=== PATIENT | female | born 1950 | race Hispanic/Latino ===

== ENCOUNTER 2018-11-04 12:47 | Inpatient (IN) | payer MEDICARE, OTHER ==
[~2018-11-04] VITALS: Ht 149.9 cm; Wt 61.7 kg
[~2018-11-04 12:47] MED LIST: AMITRIPTYLINE H25 MG PO; CHOLESTYRAMINE L4 GM PO; CITALOPRAM HBR40 MG PO; GABAPENTIN300 MG PO; HYDROCODON-ACE1 EA11 PO; LACTULOSE10 GM/151 PO; LEVAQUIN500 MG PO; LEVOTHYROXINE25 MCG PO; MELOXICAM7.5 MG PO; NOVOLIN 70100 UNITS/ SQ; OMEPRAZOLE20 MG PO; PATADAY2.5 ML; URSODIOL500 MG PO
[2018-11-04] MEDS ORDERED: SODIUM CHLORIDE 0.9% 1000ML 1,000 ML IV STA (13:22)
[2018-11-04 13:52] LABS: BASOPHILS % 0.7 % (0.0-1.0); EOSINOPHILS # (AUTO) 0.1 (0.0-0.4); EOSINOPHILS % 4.3 % (0.0-6.0); HEMATOCRIT 39.4 % (34.2-44.1); HEMOGLOBIN 13.3 g/dL (12.0-16.0); LYMPHOCYTES # (AUTO) 0.7 (1.0-3.2); LYMPHOCYTES % 23.1 % (18.0-39.1); MEAN CORPUSCULAR HEMOGLOBIN 27.7 pg (28-32); MEAN CORPUSCULAR HGB CONC 33.8 g/dL (31-35); MEAN CORPUSCULAR VOLUME 82.1 fL (81-99); MONOCYTES # (AUTO) 0.4 (0.2-0.8); MONOCYTES % 14.9 % (4.4-11.3); NEUTROPHILS # (AUTO) 1.6 (2.1-6.9); NEUTROPHILS % 56.6 % (38.7-80.0); RED CELL DISTRIBUTION WIDTH 16.7 % (11.7-14.4)
[2018-11-04 13:53] LABS: BILIRUBIN,URINE NEGATIVE (NEGATIVE); CLARITY,URINE SL CLOUDY (CLEAR); COLOR,URINE YELLOW (YELLOW); KETONES,URINE NEGATIVE (NEGATIVE); LEUKOCYTE ESTERASE ,URINE TRACE (NEGATIVE); NITRITE,URINE POSITIVE (NEGATIVE); PROTEIN,URINE DIPSTICK NEGATIVE (NEGATIVE); URINE UROBILINOGEN 1 mg/dL (0.2 - 1)
[2018-11-04 13:55] LABS: PLATELET COUNT 93 x10e3/uL (140-360)
[2018-11-04 14:02] LABS: INR 1.03
[2018-11-04 14:03] LABS: PARTIAL THROMBOPLASTIN TIME 33.2 seconds (23.8-35.5)
[2018-11-04 14:04] LABS: BACTERIA,URINE MANY /HPF; WBC,URINE (MAN) 0-5 /HPF (0-5)
[2018-11-04 14:10] LABS: ALANINE AMINOTRANSFERASE 36 IU/L (0-55); ALBUMIN 2.8 g/dL (3.5-5.0); ALKALINE PHOSPHATASE 203 IU/L (40-150); ANION GAP 8.1 mmol/L (8-16); BLOOD UREA NITROGEN 6 mg/dL (7-26); BUN/CREATININE RATIO 8 (6-25); CALCIUM 8.3 mg/dL (8.4-10.2); CARBON DIOXIDE 21 mmol/L (22-29); CHLORIDE 110 mmol/L (98-107); CREATINE KINASE 76 IU/L (29-168); CREATININE, SERUM 0.72 mg/dL (0.57-1.11); EST GLOMERULAR FILTRATION RATE > 60 ML/MIN (60-); GLUCOSE 142 mg/dL (74-118); POTASSIUM 4.1 mmol/L (3.5-5.1); SODIUM 135 mmol/L (136-145)
[2018-11-04 14:15] LABS: B-TYPE NATRIURETIC PEPTIDE2 24.1 pg/mL (0-100)
--- NOTE | 2018-11-04 14:41 | Diagnostic Imaging Report ---
Chest, 2 views, 11/04/2018. History: Cough and congestion, shortness of breath. Comparison: None available. Findings: The cardiomediastinal silhouette and pulmonary vasculature are within normal limits. The lungs are clear without evidence of consolidation or pleural effusion. Mild degenerative changes are present within the thoracic spine. There are no acute osseous or soft tissue abnormalities. Impression: No acute cardiopulmonary abnormality. Signed by: Kristopher Lundberg on 11/04/2018 2:37 PM
[2018-11-04] MEDS ORDERED: SODIUM CHLORIDE 0.9% 1000ML 1,000 ML IV SCH (16:19)
[2018-11-04] MEDS ORDERED: CEFTRIAXONE SOD 1 GRAM/0.9% SOD CHL 50ML BAG IV SCH (16:30)
[2018-11-04] MEDS ORDERED: ALBUTEROL SULF 0.083% NEB SOLN 3 ML NEB NEB SCH ×2 (16:30→19:00)
[2018-11-04] MEDS: CEFTRIAXONE SOD 1 GM/NS 50 ML 50 ML IV SCH (16:40)
[2018-11-04] MEDS ORDERED: HYDROCODONE/APAP 10MG-325MG TAB PO ONE (17:00)
--- OUTSIDE RECORDS SUMMARY | 2018-11-04 17:38 | XMS REPORT ---
Author Author [facility] Address Unknown Phone Unavailable Care Team Providers Care Hunter Name Role Phone Mikel PAT Unavailable Unavailable Problems This patient has no known problems. Allergies, Adverse Reactions, Alerts This patient has no known allergies or adverse reactions. Medications This patient has no known medications. Results Test Description Test Time Test Comments Text Results Atomic Results Result Comments CHEST 2 VIEWS 2018-11-04 14:37:00 [place] [address] Patient Name: DELORES DOBBS MR #: [id number] : 1950 Age/Sex: 68/F Req #: [id number] Adm Physician: Ordered by: MARCIE PAT MD Report #: [id number] Location: ER Room/Bed: Procedure: [id number] DX/CHEST 2 VIEWS Exam Date: 11/04/18 Exam Time: 1345 REPORT STATUS: Signed Chest, 2 views, 11/04/2018. History: Cough and congestion, shortness of breath. Comparison: None available. Findings: The cardiomediastinal silhouette and pulmonary vasculature are within normal limits. The lungs are clear without evidence of consolidation or pleural effusion. Mild degenerative changes are present within the thoracic spine. There are no acute osseous or soft tissue abnormalities. Impression: No acute cardiopulmonary abnormality. Signed by: Geovany Lundberg on 11/04/2018 2:37 PM Dictated By: GEOVANY LUNDBERG MD [id number] Transcribed By: SOLE on 11/04/18 1437 COPY TO: MARCIE PAT MD
[2018-11-04] MEDS ORDERED: DEXTROSE 50% SYRINGE 50 ML IV PRN (17:45)
[2018-11-04 17:50] VITALS: BP_SYST 141; BP_SYST 160; BP_DIAS 80; BP_DIAS 95
--- NOTE | 2018-11-04 17:50 | NUR ---
PATIENT RECEIVED FROM ER PER STRETCHER. ALERT AND VERBALLY RESPONSIVE, DENIED PAIN AT THIS TIME. YELLOW SOCKS APPLIED. ASSISTED TO THE RESTROOM AND BACK TO BED, VOIDED CLEAR YELLOW URINE. SOME INTERMITTENT COUGH NOTED, PATIENT ENCOURAGED TO DRINK SOME WATER. RESPIRATION EVEN AND UNLABORED, ABDOMEN SOFT AND LARGE. PATIENT ORIENTED TO SURROUNDINGS, BED IN LOWER POSITION, CALL LIGHT AT REACH. INSTRUCTED TO CALL FOR ASSISTANCE NEEDED. FAMILY AT BED SIDE.
[2018-11-04] MEDS ORDERED: IPRATROPIUM BROMIDE 0.02% 2.5 ML NEB NEB SCH ×2 (18:00→19:00)
[2018-11-04] MEDS ORDERED: METHYLPREDNISOLONE SOD SUCC 40 MG/ML VIAL 1ML IV SCH (18:00)
[2018-11-04] MEDS ORDERED: ALBUTEROL/IPRATROPIUM 3 ML NEB NEB PRN (18:30)
[2018-11-04] MEDS ORDERED: AZITHROMYCIN 500MG/NS 250 ML 250 ML IV SCH (18:30)
[2018-11-04] MEDS ORDERED: LACTULOSE PO PRN (18:30)
[2018-11-04] MEDS ORDERED: LACTULOSE SYRUP 20 GM/30 ML UDC PO PRN (19:00)
[2018-11-04] MEDS ORDERED: IBUPROFEN 200 MG TAB PO PRN (19:00)
--- NOTE | 2018-11-04 20:03 | NUR ---
RECEIVED PT IN BED AOX3 ,[place]LAND[place] SPEAKING .RESPIRATIONS ARE E EVEN AND UNLABORED .SKIN INTACT .CALL LIGHT WITH IN REACH CONTINUE TO MONITOR
[2018-11-04] MEDS: ALBUTEROL/IPRATROPIUM 3 ML NEB NEB SCH ×2 (20:11→23:20)
[2018-11-04 20:15] VITALS: BP 124/58
--- NOTE | 2018-11-04 20:55 | Diagnostic Imaging Report ---
TECHNIQUE: CT scan of the chest WITHOUT intravenous contrast, using standard protocol. The chest was scanned utilizing a multidetector helical scanner from the apex to the level of the adrenal glands. No IV contrast was administered because of need. Coronal and sagittal reformations were obtained. COMPARISON: None INDICATION: 68-year-old female, UTI, fever, cough DISCUSSION: Lines/tubes: None. Lungs and Airways: Mild airways disease. No focal consolidation. Mild bibasilar atelectasis. No concerning nodule or mass. Pleura: The pleural spaces are clear. Heart and mediastinum: The thyroid gland is normal. No significant mediastinal, hilar or axillary lymphadenopathy is seen. The heart and pericardium are within normal limits. Soft tissues: Normal. Abdomen: Hepatic cirrhosis with splenomegaly and sequela of portal hypertension including recanalized umbilical vein and upper abdominal collateral vessels. Trace perisplenic and perihepatic ascites. Heterogeneous mass lesion within the right hepatic lobe posteriorly measuring up to 3.3 cm. Numerous bilateral nonobstructing renal calculi. Bones: No acute bony abnormality. IMPRESSION: Mild airways disease. No focal consolidation. Hepatic cirrhosis with sequela of portal hypertension, as described. Heterogeneous 3.3 cm mass lesion the posterior right hepatic lobe suspicious for malignancy. Dedicated multi phase cross-sectional imaging recommended for further characterization if not already completed at outside facilities. Signed by: Carlo Hood MD on 11/04/2018 8:52 PM
[2018-11-04] MEDS: GABAPENTIN 100 MG CAP PO SCH (21:00)
[2018-11-04] MEDS ORDERED: GABAPENTIN 300 MG CAP PO SCH (21:00)
[2018-11-04] MEDS: HUMULIN 70/30 VIAL SQ SCH (21:00)
[2018-11-04] MEDS: INSULIN LISPRO 100 UNIT/1 ML 3ML VIAL SQ SCH (21:00)
[2018-11-04 21:12] VITALS: BP 124/58
[2018-11-05] VITALS (7 sets, daily range): BP systolic 87–123; BP diastolic 46–59
--- NOTE | 2018-11-05 01:13 | History and Physical ---
PRIMARY CARE PHYSICIAN: Dr. Jake Eller. CHIEF COMPLAINT: Fever, cough, pneumonia. HISTORY OF PRESENT ILLNESS: This is a 68-year-old female with baseline diabetes type 2, end-stage liver disease, cirrhosis, hypothyroidism, esophageal varices with previous management, hypertension, came in with fever for the past 2 weeks, associated with increasing shortness of breath and wheezing, especially with exertion. The patient had a fever of 102 at home. She was also having increasing cough. The patient did not feel well, brought into the emergency room for an evaluation. Currently, the patient is stable. PAST MEDICAL HISTORY: Liver cirrhosis, hypertension, hypothyroidism, esophageal varices, diabetes type 2. PAST SURGICAL HISTORY: Cholecystectomy, right elbow surgery, umbilical hernia repair. SOCIAL HISTORY: The patient does not smoke or use alcohol. No recreational drugs. ALLERGIES: NO KNOWN ALLERGIES. HOME MEDICATIONS: List will be reviewed. REVIEW OF SYSTEMS: Fever, cough, not feeling well, hypoxia. PHYSICAL EXAMINATION: VITAL SIGNS: Temperature T-max is 99, blood pressure 124/58, pulse rate 86, respirations 22. GENERAL: The patient is not in acute distress. She is awake. HEENT: Normocephalic, atraumatic. Anicteric. NECK: Supple grossly. PULMONARY: Diminished breath sounds bilaterally with coarse. CARDIOVASCULAR: S1 and S2. Regular rate and rhythm. ABDOMEN: Soft, some generalized tenderness, minimal fluid. EXTREMITIES: No cyanosis or edema. NEUROLOGIC: No focal deficit. LABORATORY DATA: WBC is 2.8, hemoglobin 13.3, hematocrit 39.4, and platelets 93. Chemistry; sodium is 135, potassium 4.1, chloride 110, bicarb 21, BUN is 6, creatinine 0.7, glucose 142, total bilirubin is 1.3, AST 38, ALT 36, alkaline phosphate 203. IMPRESSION: 1. Fever, shortness of breath, cough, consistent with most likely pneumonia. The patient does have fever, T-max of 102, T current 99. 2. Baseline liver cirrhosis. PLAN: Cover the patient with antibiotics. CT of the chest without IV contrast. Continue with home medication. Probably will not need to cover for DVT prophylactic due to liver cirrhosis with low platelets. We will monitor the patient closely. MD TIN Gilmore/MODL /[id number]
[2018-11-05] MEDS: TRAZODONE HCL 50 MG TAB PO SCH (01:30)
[2018-11-05] MEDS: LEVOTHYROXINE SODIUM 25 MCG TABLET PO SCH (05:45)
--- NOTE | 2018-11-05 06:03 | Diagnostic Imaging Report ---
EXAMINATION: CHEST SINGLE (PORTABLE) INDICATION: Pneumonia. COMPARISON: 11/04/2018. FINDINGS: TUBES and LINES: None. LUNGS: Lungs are not well inflated. There is no evidence of pneumonia or pulmonary edema. PLEURA: No pleural effusion or pneumothorax. HEART AND MEDIASTINUM: Cardiac size is mildly enlarged, possibly magnification. BONES AND SOFT TISSUES: No acute osseous lesion. UPPER ABDOMEN: No free air under the diaphragm. IMPRESSION: Bibasilar atelectasis. Signed by: Dr. Bailee Parry M.D. on 11/05/2018 6:00 AM
[2018-11-05 06:27] LABS: HEMATOCRIT 35.8 % (34.2-44.1); LYMPHOCYTES # (AUTO) 0.4 (1.0-3.2); LYMPHOCYTES % 24.4 % (18.0-39.1); MEAN CORPUSCULAR HEMOGLOBIN 27.8 pg (28-32); MEAN CORPUSCULAR HGB CONC 33.5 g/dL (31-35); MEAN CORPUSCULAR VOLUME 82.9 fL (81-99); MONOCYTES # (AUTO) 0.2 (0.2-0.8); MONOCYTES % 9.4 % (4.4-11.3); NEUTROPHILS # (AUTO) 1.1 (2.1-6.9); NEUTROPHILS % 66.2 % (38.7-80.0); PLATELET COUNT 77 x10e3/uL (140-360); RED BLOOD COUNT 4.32 x10e6/uL (3.6-5.1); RED CELL DISTRIBUTION WIDTH 16.9 % (11.7-14.4)
[2018-11-05 06:42] LABS: ANION GAP 8.4 mmol/L (8-16); BLOOD UREA NITROGEN 9 mg/dL (7-26); BUN/CREATININE RATIO 14 (6-25); CARBON DIOXIDE 19 mmol/L (22-29); CHLORIDE 109 mmol/L (98-107); CREATININE, SERUM 0.66 mg/dL (0.57-1.11); EST GLOMERULAR FILTRATION RATE > 60 ML/MIN (60-); GLUCOSE 237 mg/dL (74-118); POTASSIUM 4.4 mmol/L (3.5-5.1); SODIUM 132 mmol/L (136-145)
[2018-11-05] MEDS: ALBUTEROL/IPRATROPIUM 3 ML NEB NEB SCH ×3 (07:00→19:35)
--- NOTE | 2018-11-05 07:15 | NUR ---
pt alert resp even and unlabored at this time, no distress noted pt able to make needs known. call light in reach.
--- NOTE | 2018-11-05 07:31 | NUR ---
PT RESTING NO ACUTE DISTRESS NOTED WBC DROPPED TO 1.60 FROM 2.81 .PLT DROPPED TO 77 FROM 93 .GIVEN REPORT TO THE ON COMING NURSE .CONTINUE TO MONITOR
--- NOTE | 2018-11-05 07:39 | NUR ---
REPORT GIVEN TO THE ONCOMING NURSE
[2018-11-05] MEDS: HYDROCODONE/APAP 5MG-325MG TAB PO PRN (08:00)
[2018-11-05] MEDS: INSULIN LISPRO 100 UNIT/1 ML 3ML VIAL SQ SCH ×4 (08:20→21:00)
[2018-11-05] MEDS: HUMULIN 70/30 VIAL SQ SCH ×2 (08:29→21:00)
[2018-11-05] MEDS: CITALOPRAM HYDROBROMIDE 20 MG TAB PO SCH (08:33)
[2018-11-05] MEDS: GABAPENTIN 100 MG CAP PO SCH ×3 (08:33→21:00)
[2018-11-05] MEDS: PANTOPRAZOLE SOD 40 MG TABEC PO SCH ×2 (08:34→17:25)
[2018-11-05] MEDS: NON-FORMULARY MEDICATION (Ursodiol 500 MG) PO SCH ×2 (08:35→17:00)
[2018-11-05] MEDS ORDERED: NON-FORMULARY MEDICATION (Citalopram Hydrobromide (Citalopram Hbr) 40 MG) PO SCH (09:00)
--- NOTE | 2018-11-05 16:49 | NUR ---
Nutrition Intervention Note RD Recommendation(s) for Physician: -Rec adding mechanical soft to ADA diet as medically appropriate -Rec Glucerna BID to increase protein-calorie intake The patient meets criteria for MODERATE protein-calorie malnutrition. Plan of Care: RD following, monitoring for tolerance and adequacy, ONS rec Nutrition reason for involvement: Diagnosis RD Assessment 11/05: 68yo F, who was admitted for fever and cough. CXR showed no evidence of PNA or pulmonary edema. + Urine culture. Currently on abx. Visited pt in the room. Bhutanese speaking only. PCT on bedside to translate. Pt reported poor appetite with ~25lbs weight loss in the last 3 months. Reported UBW ~160lbs. Pt denied any nausea or vomiting. LBM 11/04. Pt has no teeth and agreeable with mechanical soft diet. No swallowing difficulty reported. Moderate muscle/ fat loss noted upon NFPA (see below). RD rec Glucerna BID to increase protein-calorie intake. Pt was agreeable with plan. Will continue to monitor and follow. Principal Problems/Diagnoses: fever, thrombocytopenia, cirrhosis PMH: DM, HTN, ESLD, cirrhosis, esophageal varices GI: abdomen soft, large, round Skin: no pressure wound noted Labs: (11/05) Na 132 L, Glucose 150 237 H, Ca 8.0 L Meds: insulin, protonix, synthroid Ht: 59in Wt: 137lb BMI: 27.7kg/m2 IBW: 98lb Malnutrition Evaluation (11/05) The patient meets criteria for MODERATE protein-calorie malnutrition. Energy intake: <75% of estimated energy requirements for >3 months Weight loss: >7.5% in 3 months (Acute) Fat loss: Mod clavicle protrusion Muscle loss: Mod some protrusion of acromion process Supporting Evidence: Fluid accumulation: unable to evaluate Functional Status: no changes Nutrition Prescription (Diet Order): ADA 1800 Estimated Nutritional Needs: Calories: 1116 1240kcal (18-20kcal/kg/d) Weight used: CBW Protein: 62 93g (1-1.5g/kg/d) Weight used: CBW Diet Adequacy: Not meeting calorie needs, Not meeting protein needs Diet Education Needs Assessment: Diet education indicated, but patient not appropriate for education at this time. Nutrition Care Level: mod Nutrition Diagnosis: Moderate malnutrition related to inadequate energy intake as evidenced by <75% of estimated energy requirements for >3 months, >7.5% weight loss in 3 months (Acute) and moderate muscle/ fat loss. Goal: Patient will meet 75-100% of estimated needs by follow up Progress: N/A Interventions: Modified diet, Commercial beverage Monitoring/Evaluation: Total energy intake, Total protein intake, Modified diet, Liquid supplement, Weight change Signed: Maxine Chambers MS, RD, LD
[2018-11-05] MEDS: CEFTRIAXONE SOD 1 GM/NS 50 ML 50 ML IV SCH (17:25)
--- NOTE | 2018-11-05 18:02 | Consultation ---
DATE OF CONSULTATION: Pulmonary Consultation REASON FOR CONSULT: Shortness of breath. HISTORY OF PRESENT ILLNESS: Ms. Bates is a 68-year-old female. She presented to the emergency room with complaints of shortness of breath and cough. She had a chest CT done, which showed hepatic cirrhosis, not showing any evidence of pneumonia. She is a lifelong nonsmoker. Denies any complaints of nausea, vomiting, or diarrhea. REVIEW OF SYSTEMS: GENERAL: She was having chills. Denies any fever. HEAD: Denies any head trauma. ENT: Denies any earache. CVS: Denies any chest pain. RESPIRATORY: Shortness of breath and cough. The rest of the review of systems are negative except as in HPI. PAST MEDICAL HISTORY: Cirrhosis of liver, hypertension, hypothyroidism, esophageal varices. PAST SURGICAL HISTORY: Cholecystectomy, right elbow surgery, umbilical hernia repair. FAMILY AND SOCIAL HISTORY: She does not smoke, does not drink. PHYSICAL EXAMINATION: VITAL SIGNS: Temperature 97.6, pulse of 93, blood pressure 101/52, respiratory rate of 18, O2 saturation 95% on Ventimask. HEENT: Head is atraumatic, normocephalic. NECK: Supple. CHEST: Crackles bilaterally. HEART: S1, S2 audible. ABDOMEN: Soft, nontender. EXTREMITIES: No pedal edema. NEUROLOGIC: Awake, alert. No focal neurologic deficit. LABORATORY DATA: White count of 1.6, hemoglobin 12.0, platelets 77. Chemistry; sodium 132, potassium 4.4, chloride 109, BUN 9, creatinine 0.6. Lactic acid 9.3. Total bilirubin 1.3. ASSESSMENT: Ms. Bates is a 68-year-old female, who came in with shortness of breath and cough. She has reactive airways and has history of cirrhosis. Current problems are, 1. Possible acute bronchitis with reactive airways causing her to have wheezing. 2. Cirrhosis of liver causing pancytopenia, currently stable. PLAN: Continue the patient on Rocephin, azithromycin and nebulizer treatments. No need for IV steroids at this point. Oxygen as needed. Thank you for this consult. MD MAYANK Hanley/SEMAJ /[id number]
--- NOTE | 2018-11-05 19:23 | NUR ---
report given to oncoming nurse, pt stable at shift change.
--- NOTE | 2018-11-05 20:19 | NUR ---
RECEIVED PT AT BED .DENIES PAIN RESPIRATIONS ARE EVEN AND UNLABORED .CALL LIGHT WITH IN REACH .CONTINUE TO MONITOR
[2018-11-06] VITALS (8 sets, daily range): BP systolic 92–115; BP diastolic 50–59
[2018-11-06] MEDS: ALBUTEROL/IPRATROPIUM 3 ML NEB NEB SCH ×4 (00:20→19:15)
[2018-11-06] MEDS: LEVOTHYROXINE SODIUM 25 MCG TABLET PO SCH (06:28)
--- NOTE | 2018-11-06 07:12 | NUR ---
PT RESTED DURING THE NIGHT .DENIES PAIN .CALL LIGHT WITH IN REACH .CONTINUE TO MONITOR
--- NOTE | 2018-11-06 07:24 | NUR ---
REPORT GIVEN TO THE ONCOMING NURSE
[2018-11-06] MEDS: INSULIN LISPRO 100 UNIT/1 ML 3ML VIAL SQ SCH ×4 (07:30→21:00)
[2018-11-06] MEDS ORDERED: AZITHROMYCIN 250 MG TAB PO SCH (09:00)
[2018-11-06] MEDS: NON-FORMULARY MEDICATION (Ursodiol 500 MG) PO SCH ×2 (09:00→17:00)
[2018-11-06] MEDS: CITALOPRAM HYDROBROMIDE 20 MG TAB PO SCH (09:52)
[2018-11-06] MEDS: GABAPENTIN 100 MG CAP PO SCH ×3 (09:52→21:00)
[2018-11-06] MEDS: PANTOPRAZOLE SOD 40 MG TABEC PO SCH ×2 (09:52→18:20)
[2018-11-06] MEDS: HUMULIN 70/30 VIAL SQ SCH ×2 (09:54→21:00)
[2018-11-06] MEDS: HYDROCODONE/APAP 5MG-325MG TAB PO PRN (10:08)
[2018-11-06] MEDS ORDERED: BENZONATATE 100 MG CAP PO PRN (16:30)
[2018-11-06] MEDS ORDERED: GUAIFENESIN/CODEINE 10 ML CUP PO PRN (16:30)
[2018-11-06] MEDS ORDERED: GADOBENATE DIMEGLUMINE 1 ML IV ONE (17:16)
[2018-11-06] MEDS ORDERED: SODIUM CHLORIDE 0.9% 50ML 50 ML ONE (17:16)
[2018-11-06] MEDS: CEFTRIAXONE SOD 1 GM/NS 50 ML 50 ML IV SCH (18:20)
--- NOTE | 2018-11-06 19:10 | NUR ---
Bedside nursing report completed with morning nurse. Pt alert to name. Mostly Bahraini speaking. Pt lying in bed HOB 60 degrees. Denies pain at this time. Call nolen within reach. Will continue to monitor.
--- NOTE | 2018-11-06 19:57 | Progress Note ---
DATE: 11/06/2018 Medicine Progress I am covering for Dr. Guzman. SUBJECTIVE: The patient reports having some cough and congestion. She denies any shortness of breath or any chest pain. No overnight events. OBJECTIVE: VITAL SIGNS: Temperature 98, pulse 88, respiratory rate is 20, blood pressure 103/53, and pulse ox 96% on room air. GENERAL: Not in acute distress. Alert and oriented x3. Cooperative on examination. HEENT: Head is normocephalic and atraumatic. Eyes; pupils are equal, round, and reactive to light bilaterally. Extraocular movements are intact. Throat, no evidence of erythema or exudates in the posterior pharynx. Has poor dentition. NECK: Supple. Good range of motion. PULMONARY: Clear to auscultation bilaterally. No wheezing, no rales, no rhonchi, no crackles appreciated. CARDIOVASCULAR: Positive S1 and S2. No murmurs, rubs, or gallop appreciated. ABDOMEN: Soft, nondistended, and nontender to palpation. Bowel sounds present. MUSCULOSKELETAL: Strength is 5/5 throughout. No evidence of any muscle deficits on examination. NEUROLOGIC: Cranial nerves II through XII are grossly intact. No evidence of any neurological deficits on exam. SKIN: Intact. Warm to touch. Good cap refill. PSYCHIATRIC: Normal affect and mood. EXTREMITIES: No edema. Good range of motion throughout. LABORATORY FINDINGS: Show white count yesterday was 1.6, hemoglobin 12, hematocrit 35.8, and platelets of 77. Coagulation; PT 14, INR 1, and PTT 33. Chemistry; sodium is 132, potassium is 4.4, chloride 109, bicarbonate 19, anion gap of 8.4, BUN 9, creatinine is 0.66, and glucose 98. MICROBIOLOGY: Urine culture positive for E. coli. Blood cultures, no growth. IMAGING STUDIES: Chest x-ray, bibasilar atelectasis. IMPRESSION: 1. Community-acquired pneumonia. 2. Acute bronchitis. 3. Fever. 4. Urinary tract infection. 5. Leukopenia with thrombocytopenia. 6. Liver mass needs further workup. PLAN: At this time, cultures were noted. Continue with IV antibiotics with Rocephin, which is sensitive to the E. coli. Blood cultures, no growth. I will go ahead and add Robitussin with codeine for cough as well as Tessalon Perles p.r.n. Continue with the same antibiotic regimen. Get a.m. labs. She may need Hematology consultation due to the leukopenia and thrombocytopenia. We will repeat labs tomorrow and if it is much improved, she may not need a color receiver, but if worse, she will need to be further evaluated. Otherwise, we discussed plan of care with nursing staff otherwise. MD LIZETT Tanner/SEMAJ /[id number]
[2018-11-06] MEDS: TRAZODONE HCL 50 MG TAB PO SCH (21:00)
[2018-11-07] VITALS (8 sets, daily range): BP systolic 97–117; BP diastolic 47–58
[2018-11-07] MEDS: ALBUTEROL/IPRATROPIUM 3 ML NEB NEB SCH ×3 (01:00→13:30)
[2018-11-07 05:53] LABS: BASOPHILS % 0.6 % (0.0-1.0); EOSINOPHILS # (AUTO) 0.1 (0.0-0.4); EOSINOPHILS % 4.4 % (0.0-6.0); HEMATOCRIT 35.3 % (34.2-44.1); HEMOGLOBIN 11.7 g/dL (12.0-16.0); LYMPHOCYTES # (AUTO) 0.6 (1.0-3.2); LYMPHOCYTES % 35.2 % (18.0-39.1); MEAN CORPUSCULAR HEMOGLOBIN 27.5 pg (28-32); MEAN CORPUSCULAR HGB CONC 33.1 g/dL (31-35); MEAN CORPUSCULAR VOLUME 82.9 fL (81-99); MONOCYTES # (AUTO) 0.2 (0.2-0.8); MONOCYTES % 15.1 % (4.4-11.3); NEUTROPHILS # (AUTO) 0.7 (2.1-6.9); NEUTROPHILS % 44.7 % (38.7-80.0); PLATELET COUNT 84 x10e3/uL (140-360); RED BLOOD COUNT 4.26 x10e6/uL (3.6-5.1); RED CELL DISTRIBUTION WIDTH 17.1 % (11.7-14.4)
[2018-11-07] MEDS: LEVOTHYROXINE SODIUM 25 MCG TABLET PO SCH (05:57)
[2018-11-07 06:15] LABS: ANION GAP 7.7 mmol/L (8-16); BLOOD UREA NITROGEN 10 mg/dL (7-26); BUN/CREATININE RATIO 16 (6-25); CALCIUM 8.2 mg/dL (8.4-10.2); CARBON DIOXIDE 22 mmol/L (22-29); CHLORIDE 111 mmol/L (98-107); CREATININE, SERUM 0.64 mg/dL (0.57-1.11); EST GLOMERULAR FILTRATION RATE > 60 ML/MIN (60-); GLUCOSE 71 mg/dL (74-118); POTASSIUM 3.7 mmol/L (3.5-5.1); SODIUM 137 mmol/L (136-145)
--- NOTE | 2018-11-07 06:19 | NUR ---
DR. EUCEDA INFORMED OF WBC LAB RESULTS. NO FURTHER ORDERS RECEIVED. PT AFEBRILE, T 98.3. WILL CONTINUE TO MONITOR.
[2018-11-07] MEDS: INSULIN LISPRO 100 UNIT/1 ML 3ML VIAL SQ SCH ×4 (07:30→19:43)
--- NOTE | 2018-11-07 07:30 | NUR ---
REC'D PT AAOX3, ON ROOM AIR, NO S/S OF DISTRESS. NURSE TECH NOTIFIED OF BLOOD SUGAR OF 58. NO S/S OF HYPOGLYCEMIA. PROVIDED EMERALD CRACKERS AND 4 OZ OF ORANGE JUICE. WILL RE-CHECK BLOOD SUGAR IN 10 MINUTES. SIDE RAILS UP X2, CALL MACK WITHIN REACH, AND BED IN LOWEST POSITION.
--- NOTE | 2018-11-07 07:40 | NUR ---
REC-CHECKED BLOOD SUGAR AND WAS 107. WILL CON'T TO MONITOR BLOOD SUGAR.
[2018-11-07] MEDS: PANTOPRAZOLE SOD 40 MG TABEC PO SCH ×2 (09:00→16:35)
[2018-11-07] MEDS: GABAPENTIN 100 MG CAP PO SCH ×3 (09:00→20:25)
[2018-11-07] MEDS: CITALOPRAM HYDROBROMIDE 20 MG TAB PO SCH (09:00)
[2018-11-07] MEDS: HUMULIN 70/30 VIAL SQ SCH ×2 (09:00→20:26)
[2018-11-07] MEDS: NON-FORMULARY MEDICATION (Ursodiol 500 MG) PO SCH ×2 (09:00→16:35)
[2018-11-07] MEDS: AZITHROMYCIN 250 MG TAB PO SCH (09:00)
--- NOTE | 2018-11-07 09:25 | Diagnostic Imaging Report ---
EXAM: MR Abdomen WITHOUT and WITH Contrast INDICATION: ^Liver mass COMPARISON: CT chest without contrast 11/04/2018. MR 05/08/2013. TECHNIQUE: Multiplanar and multisequence imaging was performed of the abdomen without and with contrast. T1-weighted, T2-weighted images, T1-weighted in and [id number], and Diffusion weighted images. Dynamic, post gadolinium T1-weighted spoiled gradient echo scans. IV Contrast: 12 mL of MultiHance gadolinium Oral Contrast: None Medications: None COMPLICATIONS: None FINDINGS: LOWER THORAX: Unremarkable. HEPATOBILIARY: Cirrhotic liver morphology with nodular surface contour. No biliary ductal dilation. 3.4 cm mildly arterially enhancing lesion in segment 7 of the liver (series 10, image 69). 3.3 cm mildly arterially enhancing lesion in segment 6 of the liver (series 10, image 74). These lesions are not seen on subsequent phases. No evidence of washout. GALLBLADDER: No radio-opaque stones or sludge. No wall thickening. SPLEEN: Mild splenomegaly measuring 14.0 cm in AP dimension. Previously measuring 17.0 cm (11/04/2018) and 15.4 cm (05/08/2013). PANCREAS: No focal masses or ductal dilatation. ADRENALS: No adrenal nodules KIDNEYS/URETERS: Kidneys enhance symmetrically. No hydronephrosis. Stable 1.1 cm simple cyst in the interpolar region and 1.5 cm simple cyst in the inferior pole of the right kidney. No stones. GI TRACT: No abnormal distention, wall thickening, or evidence of bowel obstruction. LYMPH NODES: No lymphadenopathy. VESSELS: Portal vein is enlarged measuring 2.0 cm in diameter. Very large recannulized periumbilical vein. Numerous varices around the vaginal area with subcutaneous varices, consistent with caput medusa. Small amount of perisplenic varices. Gastroesophageal and likely small esophageal varices. PERITONEUM / RETROPERITONEUM: No free air or fluid. BONES: Unremarkable. SOFT TISSUES: Unremarkable. IMPRESSION: 1. Cirrhotic liver with slight improvement in splenomegaly. Extensive collateral vessels. 2. 2 lesions identified in right hepatic lobe on arterial phase only. 3.3 cm in segment 6. 3.4 cm in segment 7. However, on recent CT chest only one single lesion is identified. It is possible that these 2 lesions are a single lesion but are artifactually displaced by breathing motion artifact. LR 4 based on LI-RADS classification. This lesion was seen on CT chest without contrast 11/04/2018. Not present on MR abdomen 05/08/2013. 3. Exam is severely limited by breathing motion artifact. LI-RADS M : Possible non-HCC malignancy LI-RADS 5V: Definitely hepatocellular carcinoma with tumor in vein LI-RADS 5 : Definitely hepatocellular carcinoma LI-RADS 4 : Probably hepatocellular carcinoma LI-RADS 3 : Intermediate probability for hepatocellular carcinoma LI-RADS 2 : Probably benign LI-RADS 1 : Definite benign Note: LI-RADS category should be interpreted in the context of other available data, such as biomarkers and the patient's prior probability of developing or having hepatocellular carcinoma. The LI-RADS / OPTN classification of liver lesions has been adopted to standardized CT and MRI scan reporting in patients at risk for hepatocellular carcinoma. The imaging criteria for "definitive hepatocellular carcinoma " are concordant for the LI-RADS and OPTN systems. LI-RADS criteria and documentation are available online at www.acr.org/LI-RADS. This report utilizes LI-RADS version 2014. Signed by: Dr. Pritesh Sun M.D. on 11/07/2018 9:21 AM
[2018-11-07] MEDS: CEFTRIAXONE SOD 1 GM/NS 50 ML 50 ML IV SCH (16:35)
--- NOTE | 2018-11-07 17:38 | NUR ---
ASSISTED PATIENT TO THE RESTROOM WITH WALKER. ASSISTED BACK TO BED AND REPOSITIONED PATIENT. NO S/S OF DISTRESS. BED IN LOWEST POSITION, SIDE RAILS UP X2, AND CALL MACK WITHIN REACH.
--- NOTE | 2018-11-07 19:47 | NUR ---
Received bedside report from day shift RN. The patient is laying on the bed. Patient is not in distress. Bed set low, call light within reach, side rails up x2 and is wearing non-skid socks. The patient stated she feels her blood sugar is low. Patient's blood sugar measured at 116.
[2018-11-07] MEDS: HYDROCODONE/APAP 5MG-325MG TAB PO PRN (20:25)
[2018-11-07] MEDS: TRAZODONE HCL 50 MG TAB PO SCH (20:25)
--- NOTE | 2018-11-07 22:56 | NUR ---
Spoke with patient's daughter relating to the finding Dr. Ceballos discussed with Dr. Guzman from the MRI of the abdomen. RN told the daughter the patient will be discharged from the hospital and is instructed to go to [facility] liver transplant team for further studies due to two lesions found in the liver. Daughter verbalized understanding.
[2018-11-08] VITALS (9 sets, daily range): BP systolic 93–122; BP diastolic 51–68
[2018-11-08] MEDS: LEVOTHYROXINE SODIUM 25 MCG TABLET PO SCH (05:37)
--- NOTE | 2018-11-08 07:02 | NUR ---
RECEIVED PATIENT RESTING IN BED. RESPIRATIONS EVEN AND UNLABORED, NO ACUTE DISTRESS NOTED. DENIES PAIN OR DISCOMFORT AT THIS TIME. CALL LIGHT WITHIN REACH. BED IN THE LOWEST POSITION.
[2018-11-08] MEDS: ALBUTEROL/IPRATROPIUM 3 ML NEB NEB SCH ×4 (07:15→19:00)
[2018-11-08] MEDS: INSULIN LISPRO 100 UNIT/1 ML 3ML VIAL SQ SCH ×4 (07:30→20:50)
[2018-11-08] MEDS: NON-FORMULARY MEDICATION (Ursodiol 500 MG) PO SCH ×2 (08:18→16:55)
[2018-11-08] MEDS: PANTOPRAZOLE SOD 40 MG TABEC PO SCH ×2 (08:18→16:55)
[2018-11-08] MEDS: HUMULIN 70/30 VIAL SQ SCH ×2 (08:18→20:52)
[2018-11-08] MEDS: AZITHROMYCIN 250 MG TAB PO SCH (08:18)
[2018-11-08] MEDS: CITALOPRAM HYDROBROMIDE 20 MG TAB PO SCH (08:18)
[2018-11-08] MEDS: GABAPENTIN 100 MG CAP PO SCH ×3 (08:18→20:52)
--- NOTE | 2018-11-08 12:54 | NUR ---
CM TO BEDSIDE TO DISCUSS IMM AND PATIENT'S RIGHTS TO MAKE DECISION IN HER CARE. CM ANSWERED QUESTIONS - PATIENT VERBALIZED UNDERSTANDING. COPY OF IMM LEFT AT THE BEDSIDE AND SIGNED COPY TO CHART.
[2018-11-08] MEDS: HYDROCODONE/APAP 5MG-325MG TAB PO PRN (13:00)
--- NOTE | 2018-11-08 14:55 | NUR ---
SPOKE WITH PT AND DAUGHTER PT SIGNED CHOICE FOR [facility] PT GETTING DME DELIVERED ON SUN PT WILL DISCHARGE ON SUNDAY.
[2018-11-08] MEDS: CEFTRIAXONE SOD 1 GM/NS 50 ML 50 ML IV SCH (16:55)
--- NOTE | 2018-11-08 19:10 | NUR ---
REPORT GIVEN TO ONCOMING NURSE, WALKING ROUNDS DONE. PATIENT IS RESTING IN BED. NO ACUTE DISTRESS NOTED. CALL LIGHT WITHIN REACH. BED IN THE LOWEST POSITION.
[2018-11-08] MEDS: TRAZODONE HCL 50 MG TAB PO SCH (20:50)
[2018-11-09] VITALS (9 sets, daily range): BP systolic 92–110; BP diastolic 50–78
--- NOTE | 2018-11-09 00:30 | NUR ---
patient in bed sleeping, laying in the left side position, light out with TV on
[2018-11-09] MEDS: HYDROCODONE/APAP 5MG-325MG TAB PO PRN (05:53)
[2018-11-09] MEDS: LEVOTHYROXINE SODIUM 25 MCG TABLET PO SCH (05:53)
--- NOTE | 2018-11-09 06:59 | NUR ---
report given to Tona GARCIA patient in bed with eyes closed. [place] given at 0600
[2018-11-09] MEDS: ALBUTEROL/IPRATROPIUM 3 ML NEB NEB SCH ×3 (07:33→19:05)
[2018-11-09] MEDS: HUMULIN 70/30 VIAL SQ SCH ×2 (08:30→21:00)
[2018-11-09] MEDS: INSULIN LISPRO 100 UNIT/1 ML 3ML VIAL SQ SCH ×4 (08:30→21:00)
[2018-11-09] MEDS: NON-FORMULARY MEDICATION (Ursodiol 500 MG) PO SCH ×2 (09:00→16:14)
[2018-11-09] MEDS: CITALOPRAM HYDROBROMIDE 20 MG TAB PO SCH (09:15)
[2018-11-09] MEDS: AZITHROMYCIN 250 MG TAB PO SCH (09:15)
[2018-11-09] MEDS: PANTOPRAZOLE SOD 40 MG TABEC PO SCH ×2 (09:15→16:14)
[2018-11-09] MEDS: GABAPENTIN 100 MG CAP PO SCH ×3 (09:15→21:38)
--- NOTE | 2018-11-09 10:00 | NUR ---
PATIENT OFFERED A BATH, SHE REFUSED.
[2018-11-09] MEDS ORDERED: OXAZEPAM 10 MG CAP PO PRN (11:00)
[2018-11-09 12:02] LABS: ANION GAP 12.9 mmol/L (8-16); BLOOD UREA NITROGEN 10 mg/dL (7-26); BUN/CREATININE RATIO 14 (6-25); CARBON DIOXIDE 23 mmol/L (22-29); CHLORIDE 108 mmol/L (98-107); EST GLOMERULAR FILTRATION RATE > 60 ML/MIN (60-); GLUCOSE 118 mg/dL (74-118); MAGNESIUM 2.1 MG/DL (1.3-2.1); POTASSIUM 5.9 mmol/L (3.5-5.1); SODIUM 138 mmol/L (136-145)
--- NOTE | 2018-11-09 13:58 | NUR ---
PAGED DR. BARKLEY TO NOTIFY HIM OF PATIENT'S POTASSIUM LEVEL OF 5.9, WAITING ASSET ACCOUNTANT BACK.
--- NOTE | 2018-11-09 14:02 | NUR ---
DR. BARKLEY CALLED BACK WITH ORDERS TO GIVE PATIENT ALDACTONE 30MG X1 AND LACTULOSE 30ML X1 AND RE-CHECK POTASSIUM IN AM.
[2018-11-09] MEDS ORDERED: LACTULOSE SYRUP 20 GM/30 ML UDC PO NR (14:15)
[2018-11-09] MEDS ORDERED: SPIRONOLACTONE 25 MG TAB PO NR (14:15)
[2018-11-09] MEDS: CEFTRIAXONE SOD 1 GM/NS 50 ML 50 ML IV SCH (16:14)
--- NOTE | 2018-11-09 19:25 | NUR ---
REPORT GIVEN TO ONCOMING NURSE, PATIENT IS RESTING IN BED. NO ACUTE DISTRESS NOTED, RESPIRATIONS EVEN AND UNLABORED. NO S/S OF PAIN NOTED. CALL LIGHT WITHIN REACH. BED IN THE LOWEST POSITION.
--- NOTE | 2018-11-09 19:29 | NUR ---
PT IS RESTING IN BED. RESPIRATION IS EVEN AND UNLABORED, NO DISTRESS NOTED. BED IN THE LOWEST POSITION, LOCKED, BED ALARM ON, AND CALL LIGHT WITHIN REACH. WILL CONTINUE TO MONITOR.
--- NOTE | 2018-11-09 19:51 | NUR ---
PT IS RESTING IN BED. RESPIRATION IS EVEN AND UNLABORED, NO DISTRESS NOTED. BED IN THE LOWEST POSITION, LOCKED, AND CALL LIGHT WITHIN REACH. WILL CONTINUE TO MONITOR.
[2018-11-09] MEDS: TRAZODONE HCL 50 MG TAB PO SCH (21:38)
[2018-11-10] VITALS (7 sets, daily range): BP systolic 96–105; BP diastolic 44–69
[2018-11-10] MEDS: ALBUTEROL/IPRATROPIUM 3 ML NEB NEB SCH ×2 (02:40→07:15)
[2018-11-10] MEDS: LEVOTHYROXINE SODIUM 25 MCG TABLET PO SCH (05:43)
--- NOTE | 2018-11-10 06:58 | NUR ---
REPORT GIVEN TO ONCOMING NURSE, PATIENT IS RESTING IN BED. NO ACUTE DISTRESS NOTED, RESPIRATIONS EVEN AND UNLABORED. CALL LIGHT WITHIN REACH. BED IN THE LOWEST POSITION.
[2018-11-10] MEDS: INSULIN LISPRO 100 UNIT/1 ML 3ML VIAL SQ SCH ×2 (07:30→11:30)
[2018-11-10 07:47] LABS: ANION GAP 11.4 mmol/L (8-16); BLOOD UREA NITROGEN 9 mg/dL (7-26); BUN/CREATININE RATIO 13 (6-25); CALCIUM 8.8 mg/dL (8.4-10.2); CARBON DIOXIDE 24 mmol/L (22-29); CHLORIDE 110 mmol/L (98-107); CREATININE, SERUM 0.68 mg/dL (0.57-1.11); EST GLOMERULAR FILTRATION RATE > 60 ML/MIN (60-); POTASSIUM 4.4 mmol/L (3.5-5.1); SODIUM 141 mmol/L (136-145)
[2018-11-10 07:53] LABS: GLUCOSE 57 mg/dL (74-118)
[2018-11-10] MEDS: HUMULIN 70/30 VIAL SQ SCH (08:27)
[2018-11-10] MEDS: NON-FORMULARY MEDICATION (Ursodiol 500 MG) PO SCH (08:33)
[2018-11-10] MEDS: AZITHROMYCIN 250 MG TAB PO SCH (08:33)
[2018-11-10] MEDS: PANTOPRAZOLE SOD 40 MG TABEC PO SCH (08:33)
[2018-11-10] MEDS: CITALOPRAM HYDROBROMIDE 20 MG TAB PO SCH (08:33)
[2018-11-10] MEDS: GABAPENTIN 100 MG CAP PO SCH (08:33)
[2018-11-10] MEDS: HYDROCODONE/APAP 5MG-325MG TAB PO PRN (08:36)
--- NOTE | 2018-11-10 12:21 | NUR ---
RECEIVED DC ORDER FROM MD. PATIENT IS IN STABLE CONDITION. IV LINE TO LEFT AC DCD WITH TIP INTACT, PRESSURE APPLIED TO SITE, NO BLEEDING NOTED. DISCHARGE TEACHING PROVIDED TO PATIENT AND DAUGHTER, THEY BOTH VERBALIZED UNDERSTANDING. DISCHARGE FOLDER WITH DC PAPERWORK ON HAND. PATIENT ACCOMPANIED TO PRIVATE AUTO VIA WHEELCHAIR BY STAFF.
--- NOTE | 2018-11-11 04:14 | Discharge Summary ---
PRIMARY CARE PHYSICIAN: Dr. Jake Eller. CONSULTANTS: 1. Dr. Tani Lares. 2. Dr. Nathan Ceballos. FINAL DIAGNOSES: 1. Liver mass with elevated alpha fetoprotein associated with liver cirrhosis, advanced stage with leukocytosis and thrombocytopenia. The patient's signs and symptoms consistent with liver carcinoma. Discussed with the patient and family. The patient refused liver transplant in the past and now she wanted to continue with her comfort palliative care. Hospice consulted and will go home with hospice today. 2. Status post urinary tract infection. 3. Abdominal ascites, status post fever. SUMMARY: A 68-year-old female, came in with fever and urinary tract infection. The patient treated with antibiotics, found to have thrombocytopenia and leukopenia with associated liver cirrhosis. CT scan showed liver mass along with alpha fetoprotein is elevated. The patient's signs and symptoms consistent with liver carcinoma, hepatoma, and the patient absolutely previously refused transplant evaluation and now wanted to continue with palliative care. The patient and family are agreeable for hospice care. Traditional hospice consulted. Arrangement has been made for the patient to go home with hospice. Continue with palliative care at home. Sodium is 141, potassium 4.4, chloride 110, bicarb 24, BUN 9, creatinine 0.7, glucose 57. WBCs 1.5, hemoglobin 11.7, hematocrit 35.3, platelets of 84. Pro-time is 14, PTT is 33.2, INR is 1.03. AST 38, ALT is 36, alkaline phosphatase 203, and total bilirubin is 1.3. The patient with progressive weight loss, progressive medical decline. One comfort and consult with traditional hospice. All instructions given. The patient will go home today. Resume home medication. We will adjust it upon returning home on palliative care. MD TIN Gilmore/SEMAJ /[id number]
== END 2018-11-10 12:37 | disposition hospice, home (50) | DRG 436 ==
LOC: ER 12:47 → ERHOLD 16:19 → MED/SURG3 17:21 → OBSVTOIN 11-07 09:09
PROVIDERS: ADMIT Internal Medicine; ATTEND Internal Medicine
DX: C22.0 Liver cell carcinoma (principal); N39.0 Urinary tract infection, site not specified; R18.8 Other ascites; B96.20 Unspecified Escherichia coli [E. coli] as the cause of diseases classified elsewhere; K74.60 Unspecified cirrhosis of liver; E03.9 Hypothyroidism, unspecified; J45.909 Unspecified asthma, uncomplicated; J20.9 Acute bronchitis, unspecified; I10 Essential (primary) hypertension; E11.9 Type 2 diabetes mellitus without complications; R09.02 Hypoxemia; D72.819 Decreased white blood cell count, unspecified; D69.6 Thrombocytopenia, unspecified; Z79.4 Long term (current) use of insulin; Z51.5 Encounter for palliative care; Z66 Do not resuscitate
CPT/HCPCS: 36415; 71045; 71046; 71250; 74183; 80048; 80053; 81001; 82105; 82550; 82553; 82948; 83605; 83735; 83880; 84484; 85025; 85610; 85730; 87040; 87086; 87186; 94640; 99284; G0378; J0456; J0696; J2920; J7030